=== PATIENT | female | born 1975 | race Caucasian/White ===

== ENCOUNTER 2021-08-14 12:30 | Emergency (ER) | payer OTHER ==
[2021-08-14] MEDS ORDERED: ACETAMINOPHEN 500 MG TABLET (FP) PO ONE (12:44)
[2021-08-14 12:47] VITALS: BP 117/74; PULSE 82; TEMP 98.4; BMI 22.1
[2021-08-14] MEDS ORDERED: ACETAMINOPHEN 325 MG TABLET (FP) ONE (12:49)
== END 2021-08-14 13:19 | disposition home or self-care (01) ==
LOC: FER 12:30
DX: M54.2 Cervicalgia (principal); V49.40XA Driver injured in collision with unspecified motor vehicles in traffic accident, initial encounter
CPT/HCPCS: 99283-25